=== PATIENT | male | born 2000 | race Caucasian/White ===

== ENCOUNTER 2024-07-25 15:20 | Emergency (ER) | payer OTHER, SELFPAY ==
[2024-07-25 15:22] VITALS: BP 114/79
[2024-07-25 17:47] VITALS: BP 126/96
--- NOTE | 2024-07-25 18:11 | ED.GENMED ---
History of Present Illness
<DERRICK Dasilva - Last Filed: 07/26/24 00:14>
General
Chief Complaint: Numbness
Source: patient
Exam Limitations: none
Time Seen by Provider: 07/25/24 17:57
History of Present Illness
History of Present Illness:
This is a 24 year old male that comes in with c/o scrotal pain. States that for over a month he has this pulling in the scrotum. States that it goes from the rectum to the tip of the penis. States that he has numbness in the leg from this and that
his left testicle hurts. States that he had some nausea and urinary burning. Denies any fever, chills, chest pain, SOB, abd pain, vomiting, diarrhea, headache, dizziness.
Past History
<DERRICK Dasilva - Last Filed: 07/26/24 00:14>
Past History
ED Past Medical History: Other (POTS, renal calculus)
ED Past Surgical History: None
Social History
Tobacco: Non-smoker
Alcohol: Occasional
Personal: Single
Living: with family
Review of Systems
<DERRICK Dasilva - Last Filed: 07/26/24 00:14>
Review of Systems
All Other Systems: ROS reviewed and negative except as documented in HPI and ROS
Constitutional: Reports no symptoms; Denies fever or chills
EENT: Reports no symptoms
Respiratory: Reports no symptoms; Denies cough or trouble breathing
Cardiac: Reports no symptoms; Denies chest pain
ABD/GI: Reports abdominal pain and nausea; Denies vomiting or diarrhea
: Reports dysuria and other (scrotal discomfort); Denies frequency or urgency
Musculoskeletal: Reports no symptoms
Skin: Reports no symptoms
Neurological: Reports no symptoms; Denies dizzy or headache
Psychiatric: Reports no symptoms
Phy Exam
<DERRICK Dasilva - Last Filed: 07/26/24 00:14>
General Physical Exam
General Presentation: mild distress
General age: appears stated age
General Skin: warm and dry
General Habitus: normal
General Mental: alert
General Hydration: appears well hydrated
ENT Exam
ENT Exam: TM's normal, pharynx normal and neck supple
Eye Exam
Eye Exam: EOMI
Cardiovascular Exam
Cardiovascular Exam: no edema, no murmur, normal peripheral pulses and tachycardia
Pulmonary Exam
Pulmonary Exam: lungs clear, no respiratory distress, no rales, chest non tender, no crackles, no rhonchi, no wheezing and no cough
Gastrointestinal Exam
Gastrointestinal Exam: normal bowel sounds, soft, no organomegaly, no pulsatile mass, non distended and tender (Left sided abd tenderness with palpation)
Genitourinary Exam Male
Exam Male: circumcised, no discharge, normal testicular exam, no testicular swelling and other (negative for any palpable hernia's, Slight Excoriation under the penis)
Musculoskeletal Exam
Musculoskeletal Exam: full ROM and no edema
Skin Exam
Skin Exam: normal color, warm/dry, no rash and no petechia
Psychiatric Exam
Psychiatric Exam: anxious
Course
<DERRICK Dasilva - Last Filed: 07/26/24 00:14>
Orders/Labs/Results
Orders:
Orders
07/25/24 15:30
EKG [Electrocardiogram (*1)] Urgent
Reason for Study: Vertigo / Dizzy
EKG- Treatment ONCE
07/25/24 18:08
Ketorolac [Toradol] 30 mg IV NOW STA
Scrotum US [US Scrotum] Urgent
Comment:
Reason For Exam: pulling in the groin to the tip of the penis
07/25/24 18:32
Complete Blood Count/With Diff Urgent
Comprehensive Metabolic Panel Urgent
07/25/24 19:51
Fentanyl, Urine Urgent
Urinalysis Reflex To Culture Urgent
Date Specimen was Collected: 07/25/24
Time Specimen was Collected: 19:45
Urine Drug Abuse Screen Urgent
Date Specimen was Collected: 07/25/24
Time Specimen was Collected: 19:45
Chlamydia/GC by PCR Urgent
PARAMJIT Source: Urine
Specimen Description:
Source:: URINE
Date Specimen was Collected: 07/25/24
Time Specimen was Collected: 19:45
07/25/24 22:59
CT Lumbar Spine W/ Iv Contrast Urgent
Comment:
Reason For Exam: Numbness left leg
07/25/24 23:00
0.9% Sodium Chloride 1000 ml [Nss] 1,000 ml IV BOLUS
Ondansetron Injectable [Zofran] 4 mg IV NOW STA
Abnormal Lab Results
07/25/24 07/25/24
18:32 19:51
WBC 11.0 H 10^3/uL
(4.8-10.8)
Hgb 18.2 H g/dL
(13.0-18.0)
MCH 31.4 H pg
(27.0-31.0)
MCHC 37.2 H g/dL
(33.0-37.0)
RDW 11.4 L %
(11.5-14.5)
Absolute Neuts (auto) 8.9 H 10^3/uL
(1.4-6.5)
Neutrophils % 80.8 H %
(42.2-75.2)
Lymphocytes % 13.8 L %
(20.5-51.1)
Glucose 107 H mg/dl
(70-99)
Calcium 10.4 H mg/dl
(8.4-10.2)
Total Bilirubin 1.8 H mg/dl
(0.2-1.3)
Albumin 5.4 H g/dl
(3.5-5.0)
Urine Ketones 2+ A
(Negative)
Ur Amphetamines Screen Positive H
(Negative)
U Marijuana (THC) Screen Positive H
(Negative)
07/25/24 18:32
07/25/24 18:32
Leukocytosis, Hgb elevated. glucose nonfasting. Calcium very slightly elevated. Total magda elevation. Albumin slightly elevated.
Urine Drug positive for amphetamines and Marijuana, Urine negative for infection.
Vital Signs
Initial and Last Documented VS:
Initial Vital Signs
Temp Pulse Resp BP Pulse Ox
98.5 F 61 20 114/79 97
07/25/24 15:22 07/25/24 15:22 07/25/24 15:22 07/25/24 15:22 07/25/24 15:22
Last Documented Vital Signs
Temp Pulse Resp BP Pulse Ox
98.1 F 102 16 130/86 98
07/25/24 17:47 07/25/24 23:16 07/25/24 23:16 07/25/24 23:16 07/25/24 23:16
<Faisal Ma DO - Last Filed: 07/25/24 23:29>
Orders/Labs/Results
Orders:
Orders
07/25/24 15:30
EKG [Electrocardiogram (*1)] Urgent
Reason for Study: Vertigo / Dizzy
EKG- Treatment ONCE
07/25/24 18:08
Ketorolac [Toradol] 30 mg IV NOW STA
Scrotum US [US Scrotum] Urgent
Comment:
Reason For Exam: pulling in the groin to the tip of the penis
07/25/24 18:32
Complete Blood Count/With Diff Urgent
Comprehensive Metabolic Panel Urgent
07/25/24 19:51
Fentanyl, Urine Urgent
Urinalysis Reflex To Culture Urgent
Date Specimen was Collected: 07/25/24
Time Specimen was Collected: 19:45
Urine Drug Abuse Screen Urgent
Date Specimen was Collected: 07/25/24
Time Specimen was Collected: 19:45
Chlamydia/GC by PCR Urgent
PARAMJIT Source: Urine
Specimen Description:
Source:: URINE
Date Specimen was Collected: 07/25/24
Time Specimen was Collected: 19:45
07/25/24 22:59
CT Lumbar Spine W/ Iv Contrast Urgent
Comment:
Reason For Exam: Numbness left leg
07/25/24 23:00
0.9% Sodium Chloride 1000 ml [Nss] 1,000 ml IV BOLUS
Ondansetron Injectable [Zofran] 4 mg IV NOW STA
Abnormal Lab Results
07/25/24 07/25/24
18:32 19:51
WBC 11.0 H 10^3/uL
(4.8-10.8)
Hgb 18.2 H g/dL
(13.0-18.0)
MCH 31.4 H pg
(27.0-31.0)
MCHC 37.2 H g/dL
(33.0-37.0)
RDW 11.4 L %
(11.5-14.5)
Absolute Neuts (auto) 8.9 H 10^3/uL
(1.4-6.5)
Neutrophils % 80.8 H %
(42.2-75.2)
Lymphocytes % 13.8 L %
(20.5-51.1)
Glucose 107 H mg/dl
(70-99)
Calcium 10.4 H mg/dl
(8.4-10.2)
Total Bilirubin 1.8 H mg/dl
(0.2-1.3)
Albumin 5.4 H g/dl
(3.5-5.0)
Urine Ketones 2+ A
(Negative)
Ur Amphetamines Screen Positive H
(Negative)
U Marijuana (THC) Screen Positive H
(Negative)
07/25/24 18:32
07/25/24 18:32
Vital Signs
Initial and Last Documented VS:
Initial Vital Signs
Temp Pulse Resp BP Pulse Ox
98.5 F 61 20 114/79 97
07/25/24 15:22 07/25/24 15:22 07/25/24 15:22 07/25/24 15:22 07/25/24 15:22
Last Documented Vital Signs
Temp Pulse Resp BP Pulse Ox
98.1 F 102 16 130/86 98
07/25/24 17:47 07/25/24 23:16 07/25/24 23:16 07/25/24 23:16 07/25/24 23:16
<DERRICK Dasilva - Last Filed: 07/26/24 00:14>
MDM/Problems Addressed
Differential Diagnosis Includes:
UTI, Renal calculus
MDM/Problems Addressed:
This is a 24 year old male that comes in with c/o scrotal pain. States that this started a month ago and he feels it is a pinched nerve. States that he has pulling from the penis to the rectum. States that know he feels he can't put pressure on the
left leg.
Will check labs, Get Scrotal US, medicate for pain.
Patient was seen by Dr. Ma. Will get CT with IV contrast of the lumbar spine. Will place patient on Cialis 10mg daily and Lotrisone cream 3 times daily
back into see patient. Explained that his CT is normal along with his US. Message left for Dr. Ames to see if patient could be seen sooner then the . Will give patient prescription for Cialis and Lotrisone cream. Patient to return with any
concerns.
Chronic conditions affecting care:
NA
Acute Exacerbation and/or Progression of Chronic Illness:
NA
<DERRICK Dasilva - Last Filed: 07/26/24 00:14>
*Radiology
Radiology exam reviewed: radiology read reviewed (US-Normal CT night hawk- No acute fracture or traumatic malalignment. No significant soft tissue abnormality. No evidence of abnormal enhancement. No Severe canal or neural foraminal narrowing. )
*Pulse Oximetry
Patient hypoxic: no
*EKG
Interpreted by ED Provider?: Yes
Heart Rate: 132
Rate: tachycardiac
Rhythm: sinus tachycardia
[place]: normal axis
Interval: normal interval
QRS Pattern: normal QRS
Ischemia: no ischemia
*Cash Grain [employer]er Interpretation
Rate: [employer] G[employer]er- N/A
*Critical Care Note
Total Time (30-74mins, 75-104mins- exclusive of procedures): Not Applicable
ED Attending Note
<DERRICK Dasilva - Last Filed: 07/26/24 00:14>
-
Portions of this chart may have been created with voice recognition software.� Occasional wrong word or��sound alike� substitutions may have occurred due to the inherent limitations of voice recognition software.
<Faisal Ma DO - Last Filed: 07/25/24 23:29>
ED Attending Note
Patient seen and examined by attending physician: Yes
I performed the substantive portion of visit, reviewed & personally made and approve the management plan that is documented in note by myself or GILBERT.: Yes
ED Attending Note:
Patient is a 24-year-old male who presents to the emergency department complaining of left leg numbness in addition to pain in his penis on the ventral aspect where pain is joins the scrotum and a pulling sensation from there into his anus. This
has been going on for some time. Patient has appointment with urology at the end of the month. Patient denies dysuria or hematuria. Patient states it is painful to ejaculate and erection is painful. Patient denies any blood in the ejaculate.
Curiously the patient and 2020 was admitted for very similar symptoms which were felt to be from Lyme's disease. Patient states he is unable to weight-bear on his left lower extremity because of numbness. Patient denies fever or chills. Patient
denies any GI symptoms. Patient denies any incontinence. On physical exam the patient has a circumcised penis with testicles descended but erythema of the scrotum and excoriation at the base of the penis on the ventral aspect. It is tender to
palpation. No inguinal adenopathy. Reviewed the patient's labs. They are unremarkable. Patient is positive for amphetamines but does take Adderall. Patient also states that his penis seems to deviate to the left and is bent. The patient may
have possible Peyronie's. I did explain the anatomy of the pelvis and where the anus is in comparison to the scrotum and the penis. Patient feels as though his urethra is moving and has been bent. Ultrasound scrotum is unremarkable. Because of
the numbness in his left lower extremity and his genitalia issues we will check a CT of the lumbar spine. Will try the patient on Lotrisone for the excoriation, Cialis for possible Peyronie's, and move up the patient's urologic appointment.
Discharge Plan
Departure
Patient Disposition: Home (Routine Discharge)
Date of Disposition: 07/26/24
Time of Disposition: 00:08
Patient with high blood pressure during this ER visit?: Yes
Condition: Good
Covid-19: Not Applicable
Discharge Problem:
Pain, penile
Instructions: BLOOD PRESSURE
Prescriptions:
New
tadalafil [Cialis] 10 mg tablet
10 mg PO DAILY Qty: 14 0RF
clotrimazole-betamethasone 1-0.05 % cream
1 applic topical BID 14 Days Qty: 45 0RF
Referrals:
Dae Hudson MD [Family Provider] -
Ignacio Ames MD [Active] - Follow up in 2-3 days
Activity Restrictions/Additional Instructions:
As discussed, your blood work is normal. Your urine is negative for infection. US is normal along with your CT of the lumbar spine. Please call Dr. Ames office tomorrow as they will be expecting your call to see if they can move up your
appointment. You may use Tylenol 650mg every 4 hours and Ibuprofen 600mg every 6 hours for pain. You also have 2 prescriptions sent to your Pharmacy. Please take as directed. IF YOU HAVE ANY OTHER CONCERNS PLEASE RETURN TO THE EMERGENCY ROOM.
Interventions
Interventions:
*Risk Screen - Suicide Last Done: 07/25/24 15:22
*General Assessment Last Done: 07/25/24 23:18
*Neglect/Abuse Screening Last Done: 07/25/24 15:22
*ED COVID-19 Vaccine History Last Done: 07/25/24 23:18
ED- Neurological Assessment Last Done: 07/25/24 18:46
Discharge Date and Time
Print Language: OCCITAN
[2024-07-25] MEDS: TORADOL 30 MG IV (18:33)
[2024-07-25 18:45] LABS: % Basophils 0.5 % (0-2); % Eosinophils 0.1 % (0-6); % Immature Granulocytes 0.4 % (0-0.5); % Lymphocytes 13.8 % (20.5-51.1); % Monocytes 4.4 % (1.7-9.3); % Neutrophils 80.8 % (42.2-75.2); Absolute Basophils 0.1 10^3/uL (0-0.2); Absolute Lymphocytes 1.5 10^3/uL (1.2-3.4); Absolute Monocytes 0.5 10^3/uL (0.1-0.6); Absolute Neutrophils 8.9 10^3/uL (1.4-6.5); Hematocrit 48.9 % (39.0-52.0); Hemoglobin 18.2 g/dL (13.0-18.0); Mean Corp Hgb Conc. 37.2 g/dL (33.0-37.0); Mean Corpuscular Hgb 31.4 pg (27.0-31.0); Mean Corpuscular Volume 84.3 fL (80.0-94.0); Mean Platelet Volume 9.6 fL (7.4-10.4); Nucleated Red Blood Cells % 0 % (-); Platelet Count 303 10^3/uL (130-400); Red Cell Dist. Width 11.4 % (11.5-14.5)
[2024-07-25 18:55] LABS: ALT (SGPT) 21 U/L (0-50); AST (SGOT) 26 U/L (17-59); Albumin 5.4 g/dl (3.5-5.0); Alkaline Phosphatase 78 U/L (38-126); Blood Urea Nitrogen 9 mg/dl (9-20); Calcium 10.4 mg/dl (8.4-10.2); Carbon Dioxide 24 mmol/L (22-30); Chloride 105 mmol/L (98-107); Glucose 107 mg/dl (70-99); Potassium 4.2 mmol/L (3.5-5.1); Sodium 143 mmol/L (135-145); Total Bilirubin 1.8 mg/dl (0.2-1.3); Total Protein 8.1 g/dl (6.3-8.2); eGFR > 60.00
[2024-07-25 20:03] LABS: Urine Albumin Trace (Neg - Trace); Urine Bilirubin Negative (Negative); Urine Character Clear (Clear); Urine Color Yellow; Urine Glucose Negative (Negative); Urine Ketone 2+ (Negative); Urine Leukocyte Negative (Negative); Urine Nitrite Negative (Negative); Urine Occult Blood Negative (Negative); Urine Specific Gravity 1.015 (<1.030); Urine Urobilinogen 1+ (Neg - 1+)
[2024-07-25 20:12] LABS: Amphetamines Positive (Negative); Barbiturates Negative (Negative); Benzodiazepines Negative (Negative); Buprenorphine Negative (Negative); Cocaine Negative (Negative); Marijuana Positive (Negative); Methadone Negative (Negative); Methamphetamines Negative (Negative); Opiates Negative (Negative); Phencyclidine Negative (Negative); Tricyclic Antidepressants Negative (Negative)
[2024-07-25 20:43] LABS: Fentanyl, Urine Negative (Negative)
[2024-07-25] MEDS: NSS 1000 IV (23:12)
[2024-07-25] MEDS: ZOFRAN 4 MG IV (23:12)
[2024-07-25 23:16] VITALS: BP 130/86
[2024-07-25 23:17] VITALS: BMI 20.4
== END 2024-07-26 00:20 | disposition home or self-care (01) ==
LOC: EMR 15:20
PROVIDERS: Clinical Nurse Specialist Family Health; EMERGENCY PHYSICIAN Emergency Medicine; FAMILY PHYSICIAN Family Medicine
DX: N48.89 Other specified disorders of penis (principal)
CPT/HCPCS: 99285; 96374; 96375; 96361; 72132; 76870; 80053; 80306; 80307; 81003; 85025; 87491; 87591; 93005; 93976